=== PATIENT | female | born 1970 | race Caucasian/White ===

== ENCOUNTER 2022-05-19 11:37 | Day surgery (SDC) | payer OTHER ==
[2022-05-14 14:09] VITALS: BMI 34.2
[2022-05-19] MEDS ORDERED: Bupivacaine PF 0.5% 30 ML VIAL ONE (13:45)
[2022-05-19] MEDS ORDERED: Neomycin-Polymyxin 1 ML AMP ONE (13:46)
[2022-05-19] MEDS ORDERED: CEFAZOLIN 2 GM VIAL ONE (13:52)
[2022-05-19] MEDS ORDERED: PROPOFOL 20 ML ONE (13:59)
[2022-05-19] MEDS ORDERED: Fentanyl 100 MCG/2 ML VIAL ONE (13:59)
[2022-05-19] MEDS ORDERED: Dexamethasone 20 MG/5 ML VIAL ONE (14:12)
[2022-05-19] MEDS ORDERED: Ondansetron PF 4 MG/2 ML Vial ONE (14:12)
[2022-05-19] MEDS ORDERED: ePHEDrine Sulfate 50 MG/10 ML VIAL ONE (14:13)
== END 2022-05-19 16:30 | disposition home or self-care (01) ==
LOC: CSHSDC 11:37
PROVIDERS: ATTEND Podiatrist Foot & Ankle Surgery
PROC: 0QBN0ZZ Excision of Right Metatarsal, Open Approach (ICD-10-PCS; principal; 2022-05-19)
PROC: 0SGP04Z Fusion of Right Toe Phalangeal Joint with Internal Fixation Device, Open Approach (ICD-10-PCS; principal; 2022-05-19)
DX: M20.41 Other hammer toe(s) (acquired), right foot (principal); M77.41 Metatarsalgia, right foot; F20.0 Paranoid schizophrenia; F32.A Depression, unspecified; Z79.899 Other long term (current) drug therapy
CPT/HCPCS: C1713; J1100; J2405; J2704; J3010; S0020

== ENCOUNTER 2023-04-20 07:59 | Day surgery (SDC) | payer OTHER ==
[2023-04-16 15:18] VITALS: BMI 29.9
[2023-04-20] MEDS ORDERED: Midazolam HCl 2 mg/2 ml Vial ONE (09:26)
[2023-04-20] MEDS ORDERED: PROPOFOL 40 ML ONE (09:27)
== END 2023-04-20 10:21 | disposition home or self-care (01) ==
LOC: CSHSDC 07:59
PROVIDERS: ATTEND Internal Medicine Gastroenterology
PROC: 0DB58ZX Excision of Esophagus, Via Natural or Artificial Opening Endoscopic, Diagnostic (ICD-10-PCS; principal; 2023-04-20)
PROC: 0DB68ZX Excision of Stomach, Via Natural or Artificial Opening Endoscopic, Diagnostic (ICD-10-PCS; principal; 2023-04-20)
DX: K21.00 Gastro-esophageal reflux disease with esophagitis, without bleeding (principal); K31.89 Other diseases of stomach and duodenum; K22.89 Other specified disease of esophagus; K44.9 Diaphragmatic hernia without obstruction or gangrene; K29.70 Gastritis, unspecified, without bleeding; K25.9 Gastric ulcer, unspecified as acute or chronic, without hemorrhage or perforation; D64.9 Anemia, unspecified; Z87.891 Personal history of nicotine dependence; Z88.8 Allergy status to other drugs, medicaments and biological substances; Z79.899 Other long term (current) drug therapy
CPT/HCPCS: 88305; J2250; J2704

== ENCOUNTER 2024-02-05 08:42 | Day surgery (SDC) | payer OTHER ==
[2024-02-04 13:42] VITALS: BMI 32.4
[2024-02-05] MEDS ORDERED: CEFAZOLIN 2 GM VIAL ONE (11:04)
[2024-02-05] MEDS ORDERED: Bupivacaine PF 0.5% 30 ML VIAL ONE (11:04)
[2024-02-05] MEDS ORDERED: Midazolam HCl 2 mg/2 ml Vial ONE (11:09)
[2024-02-05] MEDS ORDERED: Famotidine/PF 20 mg/2ml Vial ONE (11:12)
[2024-02-05] MEDS ORDERED: Dexamethasone 4 mg/ml Vial ONE (12:21)
[2024-02-05] MEDS ORDERED: Lidocaine 1% PF 5 ML VIAL ONE (12:21)
[2024-02-05] MEDS ORDERED: PROPOFOL 20 ML ONE (12:22)
[2024-02-05] MEDS ORDERED: fentaNYL 50 mcg/mL 1 mL Vial ONE (12:22)
[2024-02-05] MEDS ORDERED: Ondansetron PF 4 MG/2 ML Vial ONE (12:25)
== END 2024-02-05 14:25 | disposition home or self-care (01) ==
LOC: CSHSDC 08:42
PROVIDERS: ATTEND Podiatrist Foot & Ankle Surgery
PROC: 0YP90YZ Removal of Other Device from Right Lower Extremity, Open Approach (ICD-10-PCS; principal; 2024-02-05)
DX: T84.84XA Pain due to internal orthopedic prosthetic devices, implants and grafts, initial encounter (principal); F32.A Depression, unspecified; D64.9 Anemia, unspecified; K21.9 Gastro-esophageal reflux disease without esophagitis; F17.290 Nicotine dependence, other tobacco product, uncomplicated; Z79.899 Other long term (current) drug therapy; Z79.51 Long term (current) use of inhaled steroids
CPT/HCPCS: A6258; J0665; J1100; J2250; J2405; J2704; J3010; J3490